=== PATIENT | male | born 1990 | race Caucasian/White ===

== ENCOUNTER 2022-11-29 08:42 | Day surgery (SDC) | payer MEDICAID, SELFPAY ==
[2022-11-29] VITALS (12 sets, daily range): BP systolic 102–180; BP diastolic 52–101; PULSE 61–95; RESP 14–31; TEMP 36.4–36.6; O2SAT 91–100
--- NOTE | ~2022-11-29 | CT_ITS ---
EXAMINATION: CT abdomen pelvis w con DATE: 11/29/2022 10:21 INDICATION: Abdomen pain. TECHNIQUE: Computed tomography (CT) of the abdomen and pelvis was performed with 100 cc Omnipaque 350 intravenous contrast. The dose-length product was 887.17 mGy-cm. Automated exposure control and iter ative reconstruction technique were employed. COMPARISON: None. FINDINGS: Lung bases are unremarkable. Heart size normal. No significant pleural or pericardial effus ion. There is a 2.2 cm right renal cyst. There are gallstones with possible mild gallbladder wall thi ckening. There is subtle pericholecystic fat stranding. Findings suspicious for cholecystitis. Fatty infiltration of the liver. The spleen, pancreas, adrenal glands are unremarkable. There is a small bernal bcentimeter hypodense mass in the left kidney, most likely benign cysts, although too small to charac terize. No significant atherosclerosis. No lymphadenopathy. No acute osseous abnormality. No focal ly tic or blastic lesions. No free air or free fluid. Nonobstructive bowel gas pattern. No abnormal pelv ic masses or fluid collections. Bladder is decompressed. IMPRESSION: 1. Mildly distended gallbladder with gallstones, possible mild gallbladder wall thickening and subtle pericholecystic fatty infiltration, suspicious for cholecystitis. Reviewed, dictated and finalized at location B. IMPRESSION: 1. Mildly distended gallbladder with gallstones, possible mild gallbladder wall thickening and subtle pericholecystic fatty infiltration, suspicious for lopez cystitis.
--- NOTE | 2022-11-29 09:22 | ED.ABDPAIN ---
HPI - Abdominal Pain General Chief Complaint: Abdominal Pain Stated Complaint: RUQ Time Seen by Provider: 11/29/22 08:53 Source: patient, family and RN notes reviewed History of Present Illness HPI narrative: Patient presents emergency department from home for abdominal pain. Patient states pain began approximately 3 AM this morning. The pain is located across the upper mid abdomen is described as sharp and stabbing in nature. States has been associate with nausea and vomiting. Denies have any fevers or chills denies having chest pain or shortness of breath. Patient states he does have a history of pancreatitis before in the past and this feels similar to prior. He denies having any diarrhea states he has not taken anything for pain Related Data Allergies Allergy/AdvReac Type Severity Reaction Status Date / Time No Known Allergies Allergy Verified 11/29/22 09:38 Review of Systems Review of Systems: Gen.: Denies fevers or chills ENT: Denies congestion Respiratory: Denies shortness of breath or cough CV: Denies chest pain or palpitations GI: See HPI denies burning, urgency, frequency or hematuria Musculoskeletal: Denies back pain or muscle pain Neuro: Denies numbness, tingling, weakness or focal weakness Skin: Denies rash Except as documented, all other systems reviewed and negative [facility] Past Medical History Medical History (Updated 11/29/22 @ 11:29 by Abraham Villareal DO) Pancreatitis Social History Social History (Updated 11/29/22 @ 09:23 by Abraham Villareal DO) Smoking status: Never smoker Exam Narrative: APPEARANCE: No acute distress, nontoxic, resting in bed HEENT: Normocephalic, atraumatic, OMM RESPIRATORY: No respiratory distress, clear to auscultation bilaterally with no rhonchi wheezing or rales CARDIOVASCULAR: RRR s murmur ABDOMINAL: Soft nondistended tender palpation epigastric, right upper quadrant and left upper quadrant no tenderness in the right lower quadrant left lower quadrant no rebound or guarding MUSCULOSKELETAl: Moves all extremities. No clubbing, cyanosis or edema. NEURO: Awake and alert. Following commands, speech normal, no focal deficits SKIN:: Warm, dry. Normal Color PSYCHIATRIC: Normal affect/mood Course Course Emergency Course: Called discussed with Dr. Arzola for general surgery presentation work-up at this time agrees with plan for admission to his service with plan for OR today Discussed with patient plan for OR in agreement at this time Vital Signs Vital signs: Vital Signs Temperature 97.8 F 11/29/22 09:40 Pulse Rate 76 11/29/22 09:40 Respiratory Rate 20 11/29/22 09:40 Blood Pressure 147/94 H 11/29/22 09:40 Pulse Oximetry 100 11/29/22 09:40 Oxygen Delivery Room Air 11/29/22 09:40 Temperature 97.8 F 11/29/22 09:40 Pulse Rate 68 11/29/22 11:17 Respiratory Rate 17 11/29/22 11:17 Blood Pressure 117/75 11/29/22 11:17 Pulse Oximetry 98 11/29/22 11:17 Oxygen Delivery Room Air 11/29/22 09:40 MDM - Abdominal Pain MDM Narrative Medical decision making narrative: Patient presents for abdominal pain that began in the middle night with associated nausea vomiting diarrhea tender in the epigastric region. Patient with work-up showing minimally elevated white count liver enzymes within normal limits CT scan shows signs of cholecystitis: Discussed with general surgery plan for antibiotics with plan for antibiotics today for further treatment and eval Differential Diagnosis Differential diagnosis: Likely abdominal pain, acute appendicitis, calculus of kidney, diverticulitis, gastroenteritis, pancreatitis and other (Cholecystitis) Lab Data Attestation: I reviewed the patient's lab results. 11/29/22 09:31 11/29/22 09:31 Labs: Lab Results 11/29/22 11/29/22 11/29/22 Range/Units 09:31 09:31 09:31 WBC 11.2 H (4.5-10.0) K/mm3 RBC 5.84 (4.6-6.20) M/mm3 Hgb 18.2 H (14.0-18.0) g/dL Hct
[2022-11-29 09:38] LABS: Basophils Absolute Auto 0.1 K/mm3 (0.0-0.1); Eosinophils Absolute Auto 0.2 K/mm3 (0-0.3); Eosinophils Percent Auto 1.7 % (0-4.4); Hematocrit 54.2 % (42.0-52.0); Hemoglobin 18.2 g/dL (14.0-18.0); Immature Granulocyte Absolute 0.04 K/mm3 (0.00-0.031); Immature Granulocyte Percent A 0.4 % (0-0.5); Lymphocytes Percent Auto 19.7 % (18.3-44.2); Mean Corpuscular HGB Conc 33.6 g/dl (32-36); Mean Corpuscular Hemoglobin 31.2 pg (26-34); Mean Corpuscular Volume 92.8 fl (80-100); Mean Platelet Volume 9.4 fl (7.4-10.4); Monocytes Absolute Auto 0.7 K/mm3 (0.1-0.6); Monocytes Percent Auto 5.9 % (2.6-8.5); Neutrophils Percent Auto 71.3 % (45.5-73.1); Platelet Count Result 407 k/mm3 (150-375); Red Blood Count 5.84 M/mm3 (4.6-6.20); Red Cell Distribution Width 12.5 % (11.5-14.5); White Blood Count 11.2 K/mm3 (4.5-10.0)
[2022-11-29] MEDS: MORPHINE SULFATE (*CRX) 4 MG/ML INJ IV PUSH (09:39)
[2022-11-29] MEDS: SODIUM CHLORIDE 0.9% IV 1,000 ML 999 ML IV CONT (09:39)
[2022-11-29] MEDS: ONDANSETRON INJ 4 MG/2 ML VIAL IV PUSH (09:39)
[2022-11-29 09:45] LABS: Appearance Urine Clear (Clear); Bacteria Urine None Seen /hpf; Bilirubin Urine Negative (Negative); Blood Urine Negative (Negative); Color Urine Dark Yellow (Yellow); Glucose Urine UA Negative (Negative); Ketones Urine Negative (Negative); Leukocyte Esterase Ur Negative LEU/UL (Negative); Nitrate Urine Negative (Negative); Protein Urine Trace mg/dL (Negative); RBC Urine 0-2 /hpf (0-2); Specific Grav Ur 1.032 (1.001-1.035); Squamous Epithelial Cell Urine None seen /hpf (Few); WBC Urine 0-5 /hpf; pH Urine 5.5 (5.0-9.0)
[2022-11-29 09:49] LABS: Alanine Aminotransferase 44 U/L (6-50); Alkaline Phosphatase 84 U/L (38-126); Anion Gap 13 mmol/L (8-16); Aspartate Amino Transferase 39 U/L (17-59); Bilirubin,Total 0.7 mg/dL (0.2-1.3); Blood Urea Nitrogen 13 mg/dL (9-20); Calcium 9.1 mg/dL (8.4-10.2); Carbon Dioxide 23 mmol/L (22-30); Chloride 102 mmol/L (98-107); Estimated CRCL calculation 105 ml/min; Estimated Glomerular Filt Rate > 60; Glucose 139 mg/dL (65-110); Lipase 114 U/L (23-300); Sodium 138 mmol/L (137-145)
[2022-11-29 10:09] LABS: Add Urine Microscopic? YES
[2022-11-29] MEDS: PIPERACILLN/TAZ 3.375GM/NS50ML 3.375 GM/50 ML BAG IVPB (11:50)
--- NOTE | 2022-11-29 12:55 | PM.IMHP ---
H&P: HPI History of Present Illness Date/Time: 11/29/22 12:55 Chief Complaint: acute cholecystitis Narrative: The patient is a 32-year-old male presenting to the emergency department complaining of severe upper abdominal pain, right greater than left. The patient reports the pain started acutely overnight and has progressively worsened. The patient reports associated bloating, nausea and vomiting. The patient reports a similar episode in the past where he was diagnosed with pancreatitis. The patient reports has had no appetite since the episode started, however denies any fever, chills. Review of Systems Constitutional: Constitutional: Reports as per HPI, Reports anorexia, Denies chills, Denies fatigue, Denies fever(s), Denies increased appetite, Denies lethargy, Denies malaise, Reports poor appetite, Denies weakness, Denies weight gain and Denies weight loss Eyes: Eyes: Reports no additional eye complaints ENT: Reports system reviewed and no additional complaints, except as documented Cardiovascular: Cardiovascular: Reports no additional cardiovascular complaints Respiratory: Respiratory: Reports no additional respiratory complaints Gastrointestinal: Gastrointestinal: Reports as per HPI, Reports abdominal pain, Reports bloating, Reports GI cramping, Reports early satiety, Reports heartburn, Denies diarrhea, Reports nausea, Reports vomiting and Denies hematemesis Genitourinary: Genitourinary: Reports no additional male genitourinary complaints Musculoskeletal: Musculoskeletal: Reports no additional musculoskeletal complaints Integumentary/Breasts: Skin/Breast: Reports system reviewed and no additional complaints, except as docu Neurologic: Reports system reviewed and no additional complaints, except as documented Psychiatric: Psychiatric: Reports no additional psychiatric complaints Hematologic/Lymphatic: Hematologic/Lymphatic: Reports no additional hematologic/lymphatic complaints Allergic/Immunologic: Allergic/Immunologic: Reports no additional allergic/immunologic complaints [facility] Past Medical History Medical History Pancreatitis Social History Social History Smoking status: Never smoker Comments Surgical history - denies previous abd surgery FH - Mom c gb dz and cholecystectomy Meds Home Medications and Allergies Allergies Allergy/AdvReac Type Severity Reaction Status Date / Time No Known Allergies Allergy Verified 11/29/22 09:38 Vital Signs Vital Signs - 24 hr 11/29/22 09:40 11/29/22 10:13 11/29/22 11:17 Temperature 36.6 C Pulse Rate 76 66 68 Respiratory Rate 20 15 17 Blood Pressure 147/94 H 145/84 H 117/75 Pulse Oximetry 100 100 98 Oxygen Delivery Room Air Exam Const: General: cooperative, alert, awake, acute distress mild, uncomfortable and overweight Orientation/consciousness: patient oriented x3 HENMT: Head: normal to inspection, normocephalic and atraumatic Eyes: General: appearance normal, both eyes and all related structures Neck: Neck: normal visual inspection, full ROM and no lymphadenopathy Chest: Chest palpation & inspection: normal inspection of the chest Resp: Effort & Inspection: normal respiratory effort Auscultation: clear to auscultation bilaterally Cardio: Rate: regular rate Rhythm: regular rhythm GI: Inspection: normal to inspection and distended GI Palp: Yes abdominal tenderness, Yes Soft to palpation, Yes Tenderness to palpation present (GI), No Guarding due to palpation present (GI) and No Rigid due to palpation Skin: General skin exam: normal color and no rashes or lesions noted Neuro: General: patient oriented x3 and CN's II-XI intact bilaterally Extrem: General: normal to inspection and full ROM Psych: Appearance: grossly normal H&P: Results Labs Labs: Short CBC 11/29/22 Range/Units 09:31 WBC 11.2 H (4.5-10.0)
[2022-11-29] MEDS: LACTATED RINGERS 1,000 ML 30 ML IV CONT ×2 (13:00→15:31)
--- NOTE | 2022-11-29 13:00 | WPDHPUPDATE1 ---
History and Physical Update Update Date/Time: 11/29/22 13:00 History and Physical has been reviewed, including an updated exam of the patient. There are NO changes in the patient's condition. Risks, benefits, and alternatives have been discussed and questions answered. Patient agrees to proceed with procedure.
--- NOTE | 2022-11-29 13:41 | WPDANESEPPF ---
Anes - Initial Pre Proc Eval Procedure: Operation Date: 11/29/22 14:30 Proposed Procedures p Laparoscopic Cholecystectomy - Rosetta Arzola MD Date/Time: 11/29/22 13:41 Surgeon: Rosetta Arzola MD Pre Op Diagnosis: RUQ Patient Data Age: 32 Gender: M Height: 1.85 m Weight: 97.5 kg Last Vital Signs Temp 36.4 C 11/29/22 13:18 Pulse 61 11/29/22 13:18 Resp 14 11/29/22 13:18 BP 118/77 11/29/22 13:18 Pulse Ox 98 11/29/22 13:18 O2 Del Method Room Air 11/29/22 13:18 Allergies Allergy/AdvReac Type Severity Reaction Status Date / Time No Known Allergies Allergy Verified 11/29/22 09:38 Laboratory Tests 11/29/22 11/29/22 11/29/22 09:31 09:31 09:31 WBC 11.2 K/mm3 H K/mm3 (4.5-10.0) RBC 5.84 M/mm3 M/mm3 (4.6-6.20) Hgb 18.2 g/dL H g/dL (14.0-18.0) Hct 54.2 % H % (42.0-52.0) MCV 92.8 fl fl (80-100) MCH 31.2 pg pg (26-34) MCHC 33.6 g/dl g/dl (32-36) RDW 12.5 % % (11.5-14.5) Plt Count 407 k/mm3 H k/mm3 (150-375) MPV 9.4 fl fl (7.4-10.4) Immature Gran % (Auto) 0.4 % % (0-0.5) Neut % (Auto) 71.3 % % (45.5-73.1) Lymph % (Auto) 19.7 % % (18.3-44.2) [place] % (Auto) 5.9 % % (2.6-8.5) Eos % (Auto) 1.7 % % (0-4.4) Baso % (Auto) 1.0 % % (0.2-1.2) Lymph # (Auto) 2.20 K/mm3 K/mm3 (0.9-3.2) [place] # (Auto) 0.7 K/mm3 H K/mm3 (0.1-0.6) Eos # (Auto) 0.2 K/mm3 K/mm3 (0-0.3) Baso # (Auto) 0.1 K/mm3 K/mm3 (0.0-0.1) Abs Immat Gran (auto) 0.04 K/mm3 H K/mm3 (0.00-0.031) Absolute Neuts (auto) 8.0 K/mm3 H K/mm3 (1.3-6.7) Absolute Nucleated RBC 0.0 K/mm3 K/mm3 (0.0-0.012) Nucleated RBC % 0.0 % % (0.0-0.2) Sodium 138 mmol/L mmol/L (137-145) Potassium 4.0 mmol/L mmol/L (3.4-5.0) Chloride 102 mmol/L mmol/L (98-107) Carbon Dioxide 23 mmol/L mmol/L (22-30) Anion Gap 13 mmol/L mmol/L (8-16) BUN 13 mg/dL mg/dL (9-20) Creatinine 1.00 mg/dL mg/dL (0.7-1.3) Estim Creat Clear Calc 105 ml/min ml/min Estimated GFR > 60 (59 - ) Glucose 139 mg/dL H mg/dL (65-110) Calcium 9.1 mg/dL mg/dL (8.4-10.2) Total Bilirubin 0.7 mg/dL mg/dL (0.2-1.3) AST 39 U/L U/L (17-59) ALT 44 U/L U/L (6-50) Alkaline Phosphatase 84 U/L U/L (38-126) Total Protein 8.0 g/dL g/dL (6.3-8.2) Albumin 5.0 g/dL g/dL (3.5-5.1) Lipase 114 U/L U/L (23-300) Urine Color Dark yellow (Yellow) Urine Appearance Clear (Clear) Urine pH 5.5 (5.0-9.0) Ur Specific [place] 1.032 (1.001-1.035) Urine Protein Trace mg/dL mg/dL (Negative) Urine Glucose (UA) Negative mg/dL mg/dL (Negative) Urine Ketones Negative mg/dL mg/dL (Negative) Ur Blood (Man) Negative (Negative) Urine Nitrate Negative (Negative) Urine Bilirubin Negative (Negative) Urine Urobilinogen 1.0 mg/dL mg/dL (<2.0) Leukocyte Esterase Rfl Negative MARCO ANTONIO/UL MARCO ANTONIO/UL (Negative) Urine RBC 0-2 /hpf /hpf (0-2) Urine WBC 0-5 /hpf /hpf Ur Squamous Epith Cells None seen /hpf /hpf (Few) Urine Bacteria None seen /hpf /hpf Urine Casts 3-5 Patient hx anesthesia problems: none Family hx anesthesia problems: none Results Review: All pre-operative results and documents have been reviewed as part of the pre-operative evaluation. [facility] Past Medical History Medical History Pancreatitis Social History Social History (Updated 11/29/22 @ 13:55 by Alverto Nieto DO) Smoking packs
[2022-11-29] MEDS: BUPIVACAINE/EPINEPHRINE 0.5% 50 ML VIAL 30 ML INFILTRATE (14:27)
[2022-11-29] MEDS: fentaNYL CITRATE INJ (*CRX) 100 MCG/2 ML VIAL 25 MCG IV PUSH ×4 (15:04→15:11)
--- NOTE | 2022-11-29 15:06 | W.PM.PROC2 ---
Procedure Note - Detailed Date of Procedure 11/29/22 Pre-op Diagnosis Acute cholecystitis, cholelithiasis Post-op Diagnosis Same Procedure Performed Laparoscopic cholecystectomy Surgeon Rosetta Arzola MD Anesthesia General Indications 32-year-old male presented to the emergency department complaining of severe right upper quadrant abdominal pain associated with nausea and vomiting. Workup including imaging significant for acute cholecystitis, cholelithiasis. Findings acute cholecystitis with cholelithiasis Description of Procedure The patient was taken to the operating room placed in the supine position. After adequate induction of general anesthesia, the patient was prepped and draped in normal sterile fashion. A time-out was then performed to verify the patient's identity as well as the procedure being performed. I then made a 5 mm incision in the infraumbilical region. Through this, a Veress needle was placed into the peritoneal cavity and CO2 gas was then insufflated. After adequate pneumoperitoneum was achieved, the Veress needle was removed and a 5 mm optiview trocar was placed through this incision under direct visualization. I then placed the laparoscope through this trocar site and under direct visualization placed a further 12 mm subxiphoid port as well as 2 additional 5 mm ports in the right upper abdomen. The gallbladder was then identified and was noted to be inflamed, distended, and full of gallstones. I was able to place a grasper at the dome of the gallbladder and this was retracted anterior and cephalad up over the liver. A 2nd retractor was then placed at the infundibulum and retracted laterally, this allowed visualization of the triangle of Calot. I then was able to visualize the cystic duct in its entirety from its proximal insertion into the gallbladder, to its distal junction with the common hepatic/common bile duct junction. At this point, I carefully skeletonized the proximal cystic duct with the [place] dissector. I then clipped and transected the proximal cystic duct. Next I visualized the cystic artery. Again the artery was skeletonized, clipped, and transected. I then used the Bovie cautery to take down the peritoneal attachments of the gallbladder off the liver bed. This was somewhat difficult given the amount of inflammation in the posterior space. Once the gallbladder specimen was completely detached, an endo-pouch was placed through the 12 mm port site. I then placed the gallbladder specimen into the Endo pouch and removed the endo-pouch from the 12 mm port site. Of note, I did have to slightly enlarge the incision to allow extraction of the gallbladder specimen. The specimen will now be sent to pathology for further review. I then copiously irrigated the right upper quadrant. Hemostasis was noted in the liver bed, the clips were noted to be in good position on both the cystic duct stump and the cystic artery stump. No other pathology was noted in the right upper quadrant. I then moved the laparoscope to the subxiphoid port. No iatrogenic injury or other pathology was noted in the lower abdomen. I then closed the 12 mm trocar site under direct visualization using the Wyatt cone and 0 Vicryl suture. At this point, the abdomen was desufflated and all ports removed. All port sites were then closed with 4.O Monocryl subcuticular sutures. Dermabond was placed on each incision. The patient tolerated the procedure well, was extubated in the operating room postoperative and will be transferred to the recovery room in stable condition Estimated Blood Loss 10 Drains No Packing No Pathology Yes Complications No immediate complications Condition Stable Disposition PACU [facility] Billing Surgery - Charge Forward: Surgery Billing
[2022-11-29] MEDS: MIDAZOLAM HCL (*CRX) 2 MG/2 ML VIAL IV PUSH (15:18)
[2022-11-29] MEDS: HYDROmorphone HCL INJ (*CRX) 1 MG/ML SYR 0.5 MG IV PUSH ×4 (15:29→16:00)
[2022-11-29] MEDS: oxyCODONE HCL (*CRX) 5 MG TAB IR PO (16:34)
== END 2022-11-29 17:05 | disposition home or self-care (01) ==
LOC: ANHED 11:29 → ANHSURGERY 12:09
PROVIDERS: Emergency Provider Emergency Medicine; PCP Family Medicine; Visit Provider Surgery
PROC: 0FT44ZZ Resection of Gallbladder, Percutaneous Endoscopic Approach (ICD-10-PCS; CPT 47562; principal; 2022-11-29 14:30)
DX: K80.12 Calculus of gallbladder with acute and chronic cholecystitis without obstruction (principal); F17.210 Nicotine dependence, cigarettes, uncomplicated
CPT/HCPCS: 47562; 36415; 74177; 80053; 81001; 83690; 85025; 88304; A9270; J0330; J1100; J1170; J2250; J2270; J2405; J2543; J2704; J3010; J7030; J7120; Q9967

== ENCOUNTER 2023-12-14 07:24 | Inpatient (IN) | payer OTHER, MEDICAID, SELFPAY ==
[2023-12-14] VITALS (19 sets, daily range): BP systolic 111–129; BP diastolic 67–91; PULSE 65–115; RESP 20–38; TEMP 36.6–37.8; O2SAT 91–96; BMI 30.7
--- NOTE | 2023-12-14 | ECHO_ITS ---
Patient Info Name: Niko Abraham Age: 33 years : 1990 Gender: Male Ht: 72 in Wt: 230 lbs BSA: 2.33 m2 HR: 101 bpm BP: 126 / 77 mmHg Heart Rhythm: Sinus Rhythm Technical Quality: Fair Exam Date: 12/14/2023 3:55 PM Exam Location: Echo Lab Patient Status: Outpatient Admit Date: 12/14/2023 Staff Ordering Physician: Peggy Galvan APRN [employer] Developer: Richie Valdez RDCS Attending Provider: Alcides Kulkarni MD Referring Physician: Mandy MISHRA; Exam Type: CA echo doppler color flow Study Info Indications - pleural effusion Complete two-dimensional, color flow and Doppler transthoracic echocardiogram is performed. Summary 1. Complete two-dimensional, color flow and Doppler transthoracic echocardiogram is performed. 2. Technically difficult study with limited views. 3. Left ventricular chamber dimension is normal. 4. Left ventricular systolic function is normal, estimated at 65-70%. 5. There is mildly increased left ventricular wall thickness. 6. The left ventricular diastolic function is grade I diastolic dysfunction. 7. There is no aortic valve stenosis. 8. There is no mitral valve regurgitation. 9. There is trace tricuspid valve regurgitation. 10. No pulmonary hypertension, estimated pulmonary arterial systolic pressure is 18 mmHg. Left Ventricle Left ventricular chamber dimension is normal. Left ventricular systolic function is normal, estimated at 65-70%. There is mildly increased left ventricular wall thickness. The left ventricular diastolic function is grade I diastolic dysfunction. Technically difficult study with limited views. Right Ventricle Right ventricular chamber dimension is normal. Right ventricular systolic function is normal. Left Atria Left atrial chamber dimension is normal. Right Atria Right atrial chamber dimension is normal. Aortic Valve The aortic valve is not well visualized. There is no aortic valve stenosis. There is no aortic valve regurgitation. Pulmonic Valve The pulmonic valve is not well visualized. Mitral Valve The mitral valve has normal leaflets. There is no mitral valve regurgitation. Tricuspid Valve The tricuspid valve leaflets are normal. There is trace tricuspid valve regurgitation. No pulmonary hypertension, estimated pulmonary arterial systolic pressure is 18 mmHg. Pericardium/Pleural The pericardium appears epicardial fat pad. There is no pericardial effusion. Aorta The aortic root size at the sinus of Valsalva is normal. The prox ascending aorta size is normal. Left Ventricular Outflow Tract Name Value Normal LVOT 2D LVOT Diameter 2.2 cm LVOT Doppler LVOT Peak Gradient 7 mmHg LVOT Mean Gradient 4 mmHg LVOT VTI 27 cm LVOT VTI/AV VTI Ratio 1.3 LVOT Stroke Volume 100 ml LVOT CO 9.0 l/min LVOT CI 3.9 l/min/m2 Pulmonic Valve Name Value Normal
--- NOTE | ~2023-12-14 | CT_ITS ---
EXAMINATION: CT abdomen pelvis wo con DATE: 12/14/2023 12:35 INDICATION: Concern for metastatic disease based on prior chest CT TECHNIQUE: Computed tomography (CT) of the abdomen and pelvis was performed without intravenous contr ast. Automated exposure control and iterative reconstruction technique were employed. The dose-length product was 1092.03 mGy-cm. COMPARISON: 11/29/2022 FINDINGS: Small likely complex loculated left pleural effusion. There is associated atelectasis with partial co llapse of the left lower lobe. Partially visualized right lower lobe nodule which measures up to 1.5 cm which demonstrates fluid attenuation on the current study and less than fluid attenuation on the p rior chest CT which would be consistent with a hamartoma. Additional indeterminate nodules measuring 8 mm at the posterior sulcus of the right lower lobe on series 4, image 31 and 4 mm in the right lowe r lobe on image 9. There is additional compressive atelectasis along the anterior right lower lobe an d inferior right middle lobe. Heart size is normal. No pericardial effusion however there is some str anding in the left paracardial fat pad. There is mild diffuse hepatic steatosis. Cholecystectomy clip s at the gallbladder fossa. Spleen, pancreas and bilateral adrenal glands are normal. 2.0 cm exophyti c cyst at the lower pole of the right kidney. There are some excreted contrast the bilateral renal co llecting systems and in the bladder from the earlier contrast-enhanced chest CT . No hydronephrosis. Bowels are normal with no obstruction. The appendix is not visualized. No pericecal inflammatory muro ge to suggest acute appendicitis. No free intraperitoneal gas or fluid. No pathologically enlarged ab dominal or pelvic lymphadenopathy. Mild thoracic and lumbar spondylosis. Chronic mild likely physiolo gic anterior wedging at T11 and T12. IMPRESSION: 1. No evident metastatic disease in the abdomen or pelvis. 2. The 1.5 cm right lower lobe nodule concern demonstrates fluid attenuation in the current study and less than fluid attenuation on the prior chest CT despite the presence of intravenous contrast which would be most consistent with a benign hamartoma. Would however recommend further evaluation with ei ther 3 month follow-up chest CT or PET/CT of the 8 mm nodule at the posterior sulcus of the right low er lobe. Given the relatively small size of a nodule particular relative to the significant amount of respiratory motion at this level, percutaneous biopsy would be very challenging. 3. Likely exudative small loculated left pleural effusion with associated compressive atelectasis in the left lower lobe. Would consider ultrasound-guided thoracentesis. 4. Upon review of prior chest CT there is a partially visualized 3.0 x 2.2 cm mass situated in the le ft paravertebral musculature at the posterior lower cervical spine. 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 Would recommend neck CT without and with contrast to completely image the lesion. Reviewed, dictated and finalized at location A. IMPRESSION: 1. No evident metastatic disease in the abdomen or pelvis. 2. The 1.5 cm right lower lobe nodule concern demonstrates fluid attenuation in the current study and less than fluid attenuation on the prior chest CT despit e the presence of intravenous contrast which would be most consistent with a be nign hamartoma. Would however recommend further evaluation with either 3 month follow-up chest CT or PET/CT of the 8 mm nodule at the posterior sulcus of the right lower lobe. Given the relatively small size of a nodule particular relati ve to the significant amount of respiratory motion at this level, ligia
--- NOTE | ~2023-12-14 | XR_ITS ---
EXAMINATION: [id number] DATE: 12/14/2023 14:25 INDICATION: Status post left thoracentesis TECHNIQUE: frontal and lateral views of the chest were obtained. COMPARISON: Chest radiograph dated 12/14/2023 FINDINGS: Mild interval decrease in opacities in the left mid and lower lung zone post thoracentesis likely rep resenting residual small loculated components to the pleural effusion seen on prior CT with associate d atelectasis and/or pneumonia. No pneumothorax. There is improved aeration in the right middle lobe. There are some persistent mild right basilar atelectasis. No right-sided pleural effusion. The cardi omediastinal silhouette is within normal limits for AP technique. Cholecystectomy clips in right uppe r quadrant. IMPRESSION: 1. Slight decrease in a small left pleural effusion with associated atelectasis and/or pneumonia in t he left lower lung post thoracentesis. No pneumothorax. 2. Mild persistent atelectasis at the right lung base with improved aeration of the right middle lobe . Reviewed, dictated and finalized at location A. IMPRESSION: 1. Slight decrease in a small left pleural effusion with associated atelectasis and/or pneumonia in the left lower lung post thoracentesis. No pneumothorax. 2. Mild persistent atelectasis at the right lung base with improved aeration of the right middle lobe.
--- NOTE | ~2023-12-14 | XR_ITS ---
Portable chest x-ray Comparison: 12/14/2023 Clinical History: Left effusion Findings: Moderate to large left pleural effusion is again present. Probable minimal right pleural e ffusion. Cardiomediastinal silhouette is stable. Bones and soft tissues are unremarkable. Impression: Moderate to large left pleural effusion and minimal right pleural effusion. Probable associated bibasilar atelectatic change. Reviewed, dictated and finalized at location . Impression: Moderate to large left pleural effusion and minimal right pleural effusion. Probable associated bibasilar atelectatic change.
--- NOTE | ~2023-12-14 | XR_ITS ---
Clinical Indication: Chest pain PA and lateral views of the chest: Comparison: 04/19/2018 Findings: Moderate left pleural effusion present with probable left basilar atelectasis. There is haz iness of the medial right lung base with minimal right pleural effusion. Cardiomediastinal silhouett e is within normal limits. Bones and soft tissues are unremarkable. Impression: Moderate left pleural effusion and minimal right pleural fusion, with probable left basilar atelectas is. Hazy opacity medial right lung base, which could reflect central congestive change, pneumonia, pulmon fabio nodule, possibly atelectasis. Consider chest CT to further evaluate, as indicated. Reviewed, dictated and finalized at location . Impression: Moderate left pleural effusion and minimal right pleural fusion, with probable left basilar atelectasis. Hazy opacity medial right lung base, which could reflect central congestive sanjuanita nge, pneumonia, pulmonary nodule, possibly atelectasis. Consider chest CT to fu rther evaluate, as indicated.
--- NOTE | ~2023-12-14 | US_ITS ---
EXAMINATION: US thoracentesis DATE: 12/14/2023 14:41 INDICATION: Left pleural effusion. TECHNIQUE: The procedure and its risks and benefits were discussed with the patient. Potential risks discussed included bleeding, infection, and pneumothorax. The patient understood the risks and agreed to proceed. The skin was prepped and draped in sterile fashion. 1% lidocaine was used for local anes thesia. Under ultrasound guidance, a 5 Fr catheter with trochar was advanced into the small left pleu ral effusion. Fluid was aspirated. The catheter was removed, and a dressing was applied. There were n o immediate complications. FINDINGS: Ultrasound images demonstrate a small left pleural effusion and the catheter within the fluid. IMPRESSION: 1. Successful ultrasound-guided thoracentesis yielding 500 mL of cloudy etelvina-colored fluid. Reviewed, dictated and finalized at location A. IMPRESSION: 1. Successful ultrasound-guided thoracentesis yielding 500 mL of cloudy etelvina- colored fluid.
--- NOTE | ~2023-12-14 | CT_ITS ---
Clinical Indication: Dyspnea, chest pain CT Scan of the Chest with Contrast: Technique: Contiguous sections were acquired throughout the chest after intravenous administration of 100 cc of Omnipaque 350. Dose reduction technique was used on this scan by utilizing automated expos ure control and iterative reconstruction technique. The dose-length product (DLP) was 825.96 mGy-cm. Findings: There is no evidence of any significant mediastinal, hilar or axillary lymphadenopathy. There is no f illing defect in the pulmonary arterial tree to suggest pulmonary embolus. There is no evidence of ao rtic dissection or aneurysm. No pericardial effusion. There is small to moderate left pleural effusion, likely partially loculated. There is extensive left lower lobe atelectatic change. There is consolidation at the right middle lobe, inferior right upper lobe, and right lung base, most likely representing atelectatic changes. There is a 1.4 cm right low er lobe pulmonary nodule (axial image 55). There is an additional 7 mm right basilar pulmonary nodule (axial image 83). There is a 3 mm right lower lobe pulmonary nodule (axial image 63). Images through the upper abdomen reveal cholecystectomy clips. Impression: No evidence of pulmonary embolus, aortic dissection, or aortic aneurysm. 1.4 cm right lower lobe pulmonary nodule with 2 additional subcentimeter right lower lobe pulmonary n odules, as detailed above. Neoplastic/metastatic disease not excluded. Consider PET/CT and/or tissue sampling to establish a histologic diagnosis. Small to moderate left pleural effusion, likely partially loculated, with extensive left lower lobe a telectatic change. Dependent atelectatic change at the right lung base, as detailed above. Reviewed, dictated and finalized at [facility]. Impression: No evidence of pulmonary embolus, aortic dissection, or aortic aneurysm. 1.4 cm right lower lobe pulmonary nodule with 2 additional subcentimeter right lower lobe pulmonary nodules, as detailed above. Neoplastic/metastatic disease not excluded. Consider PET/CT and/or tissue sampling to establish a histologic diagnosis. Small to moderate left pleural effusion, likely partially loculated, with exten sive left lower lobe atelectatic change. Dependent atelectatic change at the ri ght lung base, as detailed above.
--- NOTE | 2023-12-14 07:34 | ECG_ITS ---
SEE SCANNED COPY FOR CONFIRMED REPORT MTDD
[2023-12-14 08:07] LABS: Basophils Absolute Auto 0.1 K/mm3 (0.0-0.1); Basophils Percent Auto 0.5 % (0.2-1.2); Eosinophils Absolute Auto 0.2 K/mm3 (0-0.3); Hematocrit 49.3 % (42.0-52.0); Hemoglobin 16.7 g/dL (14.0-18.0); Immature Granulocyte Absolute 0.12 K/mm3 (0.00-0.031); Immature Granulocyte Percent A 0.8 % (0-0.5); Lymphocytes Absolute Auto 2.28 K/mm3 (0.9-3.2); Lymphocytes Percent Auto 15.4 % (18.3-44.2); Mean Corpuscular HGB Conc 33.9 g/dl (32-36); Mean Corpuscular Hemoglobin 30.7 pg (26-34); Mean Corpuscular Volume 90.6 fl (80-100); Mean Platelet Volume 9.7 fl (7.4-10.4); Monocytes Percent Auto 13.6 % (2.6-8.5); Neutrophils Absolute Auto 10.2 K/mm3 (1.3-6.7); Neutrophils Percent Auto 68.7 % (45.5-73.1); Platelet Count Result 431 k/mm3 (150-375); Red Blood Count 5.44 M/mm3 (4.6-6.20); Red Cell Distribution Width 12.1 % (11.5-14.5); White Blood Count 14.8 K/mm3 (4.5-10.0)
[2023-12-14 08:34] LABS: Alanine Aminotransferase 35 U/L (6-50); Albumin Level 4.7 g/dL (3.5-5.1); Alkaline Phosphatase 66 U/L (38-126); Anion Gap 13 mmol/L (4-12); Aspartate Amino Transferase 33 U/L (17-59); Bilirubin,Total 1.6 mg/dL (0.2-1.3); Blood Urea Nitrogen 8 mg/dL (9-20); Calcium 9.7 mg/dL (8.4-10.2); Carbon Dioxide 21 mmol/L (22-30); Chloride 100 mmol/L (98-107); Estimated CRCL calculation 127 ml/min; Estimated Glomerular Filt Rate > 60; Glucose 112 mg/dL (65-110); Lipase 39 U/L (23-300); Potassium 3.7 mmol/L (3.4-5.0); Sodium 134 mmol/L (137-145)
[2023-12-14 08:41] LABS: Troponin I < 0.012 ng/mL (0.000-0.034)
[2023-12-14 09:16] LABS: INR 1.1; Prothrombin Time 14.2 Seconds (11.1-14.7)
[2023-12-14 09:18] LABS: Partial Thromboplastin Time 30.5 Seconds (22.3-36.8)
--- NOTE | 2023-12-14 09:42 | ED.CHESTPAIN ---
HPI - Chest Pain General Chief Complaint: Chest Pain <HEATHER Pierce Last Filed: 12/15/23 15:14> Stated Complaint: mult complaints <HEATHER Pierce Last Filed: 12/15/23 15:14> Time Seen by Provider: 12/14/23 09:07 <Nathan Garcia PA-C - Last Filed: 12/15/23 15:14> Source: patient <HEATHER Pierce Last Filed: 12/15/23 15:14> Mode of arrival: ambulatory <HEATHER Pierce Last Filed: 12/15/23 15:14> Limitations: no limitations <HEATHER Pierce Last Filed: 12/15/23 15:14> History of Present Illness HPI narrative: this is a 33 year old male who presents to the ED with chief complaint of chest pain beginning 2 days ago. Patient reports initially having some shortness of breath and feeling fatigued over the weekend but for the past couple of days has had pleuritic chest pain. He reports it is mainly on the left side. described as sharp and worsens with certain movements or with deeper breathing. Reports it feels like it is in the ribs and the back. States last time he had pain like this was when his gallbladder was inflamed. He reports sweats and chills at but no recorded fevers. Denies vomiting, syncope, numbness, focal weakness, abdominal pain, urinary symptoms. denies any IV or recreational drug use <HEATHER Pierce Last Filed: 12/15/23 15:14> Related Data Home Medications: Home Medications Medication Instructions Recorded Confirmed No Home Medications 12/14/23 12/14/23 <HEATHER Pierce Last Filed: 12/15/23 15:14> Allergies/Adverse Reactions: Allergies Allergy/AdvReac Type Severity Reaction Status Date / Time No Known Allergies Allergy Verified 12/14/23 09:42 <HEATHER Pierce Last Filed: 12/15/23 15:14> Review of Systems Review of Systems: All systems as dictated in HPI <HEATHER Pierce Last Filed: 12/15/23 15:14> [facility] Past Medical History Medical History: Medical History (Updated 12/14/23 @ 22:15 by Marixa Walker MD) Pancreatitis Suicide attempt 17 years old, no issues since <Nathan Garcia PA-C - Last Filed: 12/15/23 15:14> Surgical History Surgical History: Surgical History History of appendectomy History of laparoscopic cholecystectomy 11/29/2022 <Nathan Garcia PA-C - Last Filed: 12/15/23 15:14> Family History Family History: Family History (Updated 12/14/23 @ 16:51 by Marilu Hugo RN) Father Acute myocardial infarction Sibling Asthma <HEATHER Pierce Last Filed: 12/15/23 15:14> Social History Social History: Social History Smoking packs per day: 1 Smoking cigarettes per day: 20.0 Years smoked: 15 Smoking pack-years: 15.00 Smoking status: Current every day smoker Tobacco type: cigarettes Alcohol intake: never Substance use: never Do You Feel Safe in your Home?: Yes Lack of Transportation: No Lack of Food: Never True Current Housing: I Have Housing Concerned About Future Housing: No Difficulty Paying Gas/Electric Bills: No Difficulty Paying for Meds: No Currently Unemployed: YES Education: High School Diploma/GED Difficulty w/ Childcare or Family Care: No Spiritual care concerns: No <HEATHER Pierce Last Filed: 12/15/23 15:14> Exam Narrative: GENERAL: Appears in pain. Sitting up in the bed. HEAD: Normocephalic, atraumatic. EYES: PERRLA and EOMI. ENT: Nares clear, no rhinorrhea or epistaxis. Mucous membranes moist. Oropharynx without tonsillar hypertrophy exudate or other lesions. NECK: Supple. No adenopathy or masses. CHEST: Slightly tachypneic. No overt respiratory distress. No accessory muscle use. Able to speak in full sentences. 93% room air. Breath sounds absent on the left lower and left mid lung zones. Diminished on right lower lung zo
[2023-12-14] MEDS: HYDROmorphone HCL INJ (*CRX) 1 MG/ML SYR 0.5 MG IV PUSH ×3 (09:54→23:10)
[2023-12-14 10:25] LABS: NT Pro B Type Natriuretic Pept 82 pg/mL (19.9-100)
--- NOTE | 2023-12-14 11:30 | ECG_ITS ---
SEE SCANNED COPY FOR CONFIRMED REPORT MTDD
[2023-12-14] MEDS: PIPERACILLN/TAZ 3.375GM/NS50ML 3.375 GM/50 ML BAG IVPB (11:39)
[2023-12-14 11:49] LABS: Alveolar/Arterial O2 Gradient 55.6 mmHg; Base Excess ABG -2.3 mEq/l (+/-2.0); Fractional Inspired Oxygen 21 %; HCO3 ABG 19.6 mEq/l (22.0-26.0); Oxygen Content ABG 21.2 %vol (16.0-22.0); Oxygen Saturation ABG 93.2 % (95.0-100.0); PCO2 ABG 27.6 mmHg (35.0-45.0); PO2 ABG 61.1 mmHg (80.0-100.0); PO2 FiO2 Ratio Arterial Blood 2.91 %; Total Hemoglobin 16.6 g/dL (12.0-18.0)
[2023-12-14 11:50] LABS: Site Drawn RIGHT BRACHIAL
[2023-12-14 11:51] LABS: Device ROOM AIR
[2023-12-14 12:05] LABS: Lactic Acid Reflex 1.3 mmol/L (0.7-2.0)
[2023-12-14 12:16] LABS: Troponin I < 0.012 ng/mL (0.000-0.034)
[2023-12-14 12:36] LABS: Influenza A QL RT-PCR Negative (Negative); Influenza B QL RT-PCR Negative (Negative); RSV RNA, RT-PCR Negative (Negative); SARS-CoV-2 RNA PCR Negative (Negative)
[2023-12-14] MEDS: levoFLOXacin 750 MG/D5W 150 ML 750 MG/150 ML BAG 100 MG IVPB (12:36)
[2023-12-14 13:04] LABS: HIV 1/2 Ab P24 Ag Result Negative (Negative)
[2023-12-14] MEDS: LACTATED RINGERS 1,000 ML 999 ML IV CONT ×2 (13:15)
--- NOTE | 2023-12-14 13:22 | PM.IMHP ---
H&P: HPI History of Present Illness Date/Time: 12/14/23 13:22 Chief Complaint: Chest Pain Narrative: 33 y/o M presents here with chest pain and SOB with exertion with PMH of pancreatitis (one acute episode, teenager) and cholecystectomy (11/29/22). Patient presents here from home for further evaluation of shortness of breath with exertion and chest discomfort. Patient reports he initially developed symptoms on 12/08 (Tuesday). Symptom course started with shortness of breath that worsened with activity and alleviated with rest. Has since developed decreased appetite and L rib pain described as blunt, nonradiating, intermittent, aggravated by laying flat, and alleviated by rest. Had similar episode of pain when he had acute cholecystics in 2022 that resulted in a cholecystectomy. Initially attributed chest wall pain to laying on it wrong or muscular. Endorses chills and intermittent diaphoresis/clamminess starting on 12/10 (Tuesday) Denies fever, body aches, unintentional weight loss, abnormal or easy bruising, night sweats, syncope, palpitations, or abdominal pain. IVDU - none. ETOH - biannually (new years and birthday democrat). No international travel or previous incarceration. Denies any recent trauma. No chemical exposures. Smokin PPD x 20 years. Initial VS at presentation: PA 97.9? F, HR 115, RR 28, 129/91, and 91% on RA. ED workup showed: WBC 14.8, platelet count 431, anion gap 13, creatinine 0.9 and GFR >60, lactic 1.3, total bilirubin 1.6, and initial troponin negative. Lipase 39 and LFTs within normal limits. Patient had multiple abnormal findings on CTA. Review of Systems Review of Systems: All systems reviewed & are unremarkable except as noted in HPI and below PMFSH Past Medical History Medical History Pancreatitis Surgical History Surgical History History of appendectomy History of laparoscopic cholecystectomy 11/29/2022 Social History Social History Smoking packs per day: 1 Smoking cigarettes per day: 20.0 Years smoked: 15 Smoking pack-years: 15.00 Smoking status: Current every day smoker Meds Home Medications and Allergies Home Medications Medication Instructions Recorded Confirmed Type hydrocodone 5 mg-acetaminophen 325 1 tablet PO Q6H PRN pain #30 tabs 11/29/22 12/15/22 Rx mg tablet Allergies Allergy/AdvReac Type Severity Reaction Status Date / Time No Known Allergies Allergy Verified 12/14/23 09:42 Vital Signs Vital Signs - 24 hr 12/14/23 07:28 12/14/23 07:58 12/14/23 07:34 Temperature 97.9 F Pulse Rate 115 H 92 110 H Respiratory Rate 28 H 27 H Blood Pressure 129/91 H Pulse Oximetry 91 92 Oxygen Delivery Room Air 12/14/23 08:20 12/14/23 08:54 12/14/23 09:16 Temperature Pulse Rate 101 H 109 H 109 H Respiratory Rate 30 H 20 38 H Blood Pressure 111/76 125/81 Pulse Oximetry 93 95 93 Oxygen Delivery 12/14/23 09:45 12/14/23 10:14 12/14/23 11:38 Temperature Pulse Rate 104 H 115 H 85 Respiratory Rate 38 H 27 H 23 H Blood Pressure 126/76 121/69 Pulse Oximetry 93 93 Oxygen Delivery 12/14/23 11:46 Temperature Pulse Rate 93 Respiratory Rate 26 H Blood Pressure 112/74 Pulse Oximetry 93 Oxygen Delivery Exam Const: General: comfortable and no acute distress Other: , male, ill-appearing HENMT: Face/Nose/Sinus: Normal nares present Mouth: Yes moist mucous membranes Other: +poor dentition Eyes: General: appearance normal, both eyes and all related structures Sclera: sclerae normal Pupils: Equal, round and reactive pupils present EOM: EOMs intact bilaterally Neck: Other: no lymphadenopathy, thyroid normal Resp: Other: mild tachypnea, no accessory muscle use. L lung sounds absent from midlung to base. Diminished at R ba
[2023-12-14 13:45] LABS: Troponin I < 0.012 ng/mL (0.000-0.034)
[2023-12-14 13:51] LABS: Lactate Dehydrogenase 154 U/L (120-246)
--- NOTE | 2023-12-14 13:56 | PC.NURSE ---
Patient to US for procedure
--- NOTE | 2023-12-14 14:38 | PC.NURSE ---
After levaquin infusion, patient's wrist began getting red. patient complained of burning. infusion stopped and IV removed.
[2023-12-14 14:47] LABS: pH Pleural Fluid 7.224 (7.210-7.500)
[2023-12-14 14:55] LABS: MRSA (PCR) NOT DETECTED (NOT DETECTE)
[2023-12-14] MEDS: VANCOMYCIN 1,250 MG/NS 250 ML 1,250 MG/250 ML BAG 166.67 MG IVPB ×2 (15:15→16:53)
--- NOTE | 2023-12-14 16:07 | PC.NURSE ---
Attempted to call IMU X2 with no answer
[2023-12-14 16:12] LABS: Appearance Pleural Fluid Clear (Clear); Color Pleural Fluid Yellow (Colorless); Nucleated Cell Pleural Fluid 6034 /uL (0-1000); Pleural fluid source Pleural fluid; RBC Pleural Fluid 3000 /uL (0-10000)
[2023-12-14 16:14] LABS: Lymphocytes Pleural Fluid 7 %; Macrophages Pleural Fluid 2 %; Monocytes Pleural Fluid 7 %; Neutrophils Pleural Fluid 84 % (0-25)
--- NOTE | 2023-12-14 16:38 | ADMGEN ---
This patient, Niko Abraham, was admitted to IMU Room 213-01. Patient/family oriented to hospital policies and general routines including ID bracelet, bed and alarms, visiting hours, pain management, procedures, bathroom and other care routines, personal items, smoking policy, room service/diet, and visiting hours. Information on how to activate the Rapid Response Team has been discussed. Patient/Family are encouraged to report perceived risks to care and to ask questions if they do not understand what they are told or what they should do.
[2023-12-14 17:01] LABS: Uric Acid 4.6 mg/dL (3.5-8.5)
[2023-12-14 17:03] LABS: Cholesterol 146 mg/dL (0-200); HDL Direct 31 mg/dL; Triglycerides 113 mg/dL (<150)
[2023-12-14 17:13] LABS: LDL Cholesterol Direct 87 mg/dL
[2023-12-14] MEDS: SODIUM CHLORIDE 0.9% IV 1,000 ML 125 ML IV CONT (17:50)
[2023-12-14 17:57] LABS: Procalcitonin 0.3 ng/mL
[2023-12-14] MEDS: AMPICILLIN SULB 3 GM/NS 100 ML 3 GM/100 ML VIAL IVPB ×2 (18:39→23:06)
[2023-12-14 18:43] LABS: Hepatitis B Surface Antigen Negative (Negative)
[2023-12-14 18:49] LABS: HAV RESULT Negative (Negative); Hepatitis B Core IgM Result Negative (Negative)
[2023-12-14 19:00] LABS: Hepatitis C Virus Antibody Negative (Negative)
[2023-12-15] VITALS (19 sets, daily range): BP systolic 102–128; BP diastolic 57–77; PULSE 80–108; RESP 14–22; TEMP 36.4–37.1; O2SAT 91–94
[2023-12-15] MEDS: SODIUM CHLORIDE 0.9% IV 1,000 ML 125 ML IV CONT ×2 (03:25→19:33)
[2023-12-15] MEDS: VANCOMYCIN 1,500 MG/NS 500 ML 1,500 MG/500 ML BAG 250 MG IVPB ×2 (03:28→15:49)
[2023-12-15 04:48] LABS: Estimated CRCL calculation 117 ml/min; Estimated Glomerular Filt Rate > 60
[2023-12-15] MEDS: SODIUM CHLOR 3% 15 ML NEB (RESPIRATORY THERAPY) 6 ML INHALATION (05:28)
[2023-12-15] MEDS: AMPICILLIN SULB 3 GM/NS 100 ML 3 GM/100 ML VIAL IVPB (06:17)
[2023-12-15 06:43] LABS: Appearance Urine Cloudy (Clear); Bacteria Urine None Seen /hpf; Bilirubin Urine 1+ (Negative); Blood Urine Negative (Negative); Color Urine Dark Yellow (Yellow); Glucose Urine UA Negative (Negative); Ketones Urine Trace mg/dL (Negative); Leukocyte Esterase Ur Negative LEU/UL (Negative); Need Manual Microscopic Reviewed; Nitrate Urine Negative (Negative); Non Pathogenic Casts 0-2; Protein Urine Trace mg/dL (Negative); Specific Grav Ur 1.025 (1.001-1.035); Squamous Epithelial Cell Urine None Seen /hpf (Few); WBC Urine 0-5 /hpf (0-3); pH Urine 5.5 (5.0-9.0)
[2023-12-15 06:45] LABS: Add Urine Microscopic? YES
[2023-12-15 07:01] LABS: Amphetamine Screen Urine Negative (Negative); Barbiturate Screen Urine Negative (Negative); Benzodiazepines Screen Urine Negative (Negative); Cannabinoid Screen Urine Negative (Negative); Cocaine Screen Urine Negative (Negative); Methadone Screen Urine Negative (Negative); Opiate Screen Urine Positive (Negative); Phencyclidine Screen Urine Negative (Negative)
[2023-12-15] MEDS: HYDROmorphone HCL INJ (*CRX) 1 MG/ML SYR 0.5 MG IV PUSH ×2 (07:13→21:53)
[2023-12-15 09:19] LABS: Basophils Absolute Auto 0.1 K/mm3 (0.0-0.1); Basophils Percent Auto 0.7 % (0.2-1.2); Eosinophils Absolute Auto 0.1 K/mm3 (0-0.3); Eosinophils Percent Auto 0.9 % (0-4.4); Hematocrit 40.4 % (42.0-52.0); Hemoglobin 13.5 g/dL (14.0-18.0); Immature Granulocyte Absolute 0.07 K/mm3 (0.00-0.031); Immature Granulocyte Percent A 0.5 % (0-0.5); Lymphocytes Absolute Auto 1.44 K/mm3 (0.9-3.2); Lymphocytes Percent Auto 10.2 % (18.3-44.2); Mean Corpuscular HGB Conc 33.4 g/dl (32-36); Mean Corpuscular Hemoglobin 30.5 pg (26-34); Mean Corpuscular Volume 91.2 fl (80-100); Mean Platelet Volume 10.4 fl (7.4-10.4); Monocytes Absolute Auto 1.8 K/mm3 (0.1-0.6); Monocytes Percent Auto 12.7 % (2.6-8.5); Neutrophils Absolute Auto 10.5 K/mm3 (1.3-6.7); Platelet Count Result 421 k/mm3 (150-375); Red Blood Count 4.43 M/mm3 (4.6-6.20); Red Cell Distribution Width 12.2 % (11.5-14.5); White Blood Count 14.1 K/mm3 (4.5-10.0)
--- NOTE | 2023-12-15 09:27 | PM.CNPUL ---
Assessment and Plan Assessment and plan (1) Pleural effusion: Code(s): J90 - Pleural effusion, not elsewhere classified Status: Acute Assessment and Plan: Patient presents with increased cough, fevers, leukocytosis, left lower lobe infiltrate with complex parapneumonic effusion with a pH of 7.22 and 84% neutrophils. Blood, pleural and sputum cultures are pending. Patient is on room air and a blood gas on room air was 7.47/28/61. The patient has poor dentition. Plan: Recommend patient be transfer to higher level of care facility for thoracic surgery consultation regarding chest tube and/or VATS procedure for his complex parapneumonic effusion. I will continue Zosyn, vancomycin and levofloxacin, all started on 12/14/2023. there is no evidence of hypercarbic respiratory failure. Discussed with Dr. Berger who will initiate the transfer. Will follow with you. (2) Pulmonary nodule: Code(s): R91.1 - Solitary pulmonary nodule Status: Acute Assessment and Plan: Patient with right lower lobe nodule most consistent with benign hematoma at this time. Patient will require follow-up CT scan in the future. History of Present Illness History of Present Illness Consult date: 12/15/23 Chief complaint: Loculated Pleural Effusion, Sepsis Narrative: 12/15/2023: This is a new pulmonary consult for loculated left pleural effusion. 33-year-old man with a history of pancreatitis as a teenager, cholecystectomy on 11/29/2022, dental abscess 6-8 months ago treated with 10 days of antibiotics with complete resolution. on no home medicines. Patient is a smoker at 1 pack per day since age 14. Patient was in his usual state of health on 12/07/2023. He has a chronic cough productive of minimal phlegm. On 12/08/2023 the patient woke up with left-sided back and chest pain and thought he slept on his back improperly. He denied fever, chills, rigors. Patient was the same on 12/08 and they drove to [place] to a wedding. On 12/09 he developed left shoulder pain but otherwise was the same. On 12/10 his pain was worse and on 12/11 his pain was worsened he also had substernal chest pain with increased cough, clammy feeling, hot and cold feeling. symptoms persisted on 12/12. Patient presented to the emergency department on 12/13 With blood pressure 129/91, room air saturations 91%, heart rate 115, white blood cell count 14.8, creatinine 0.9, BNP 82, troponin negative x2, HIV negative, COVID, influenza and RSV RT PCR study negative. CT angiogram was negative for PE and demonstrated a moderate left loculated pleural effusion with left lower lobe Infiltrate with atelectatic changes. patient also had a 1.4 cm right lower lobe nodule. CT scan of the abdomen demonstrated no evidence of malignant disease and and alternative impression of the right lower lobe nodule was a benign hemartoma. patient was started on vancomycin, Zosyn and Levaquin. Patient had a left thoracentesis with 500 mL of etelvina fluid removed. PH was 7.22, g stain was many white blood cells no organisms seen. White blood cells 6032 with neutrophils 84%, lymphocytes 7, monocytes 7, macrophages 2% 12/14/23: patient tells me that he is a little bit better. His pain is less intense. He denies shortness of breath. He is on room air with saturations 92%. Patient had a fever last night to 37.8. Chest x-ray today shows continue moderate to large left pleural effusion and minimal right pleural effusion. EXAMINATION: CT abdomen pelvis wo con DATE: 12/14/2023 12:35 INDICATION: Concern for metastatic disease based on prior chest CT TECHNIQUE: Computed tomography (CT) of the abdomen and pelvis was performed without intravenous contrast. Automated exposure control and iterative reconstruction technique were employed. The dose-length product was 1092.03 mGy-cm. COMPARISON: 11/29/2022 FINDINGS: Small likely complex loculated left ple
[2023-12-15 10:39] LABS: Anion Gap 9 mmol/L (4-12); Blood Urea Nitrogen 10 mg/dL (9-20); Calcium 8.6 mg/dL (8.4-10.2); Carbon Dioxide 20 mmol/L (22-30); Chloride 103 mmol/L (98-107); Estimated CRCL calculation 117 ml/min; Estimated Glomerular Filt Rate > 60; Glucose 114 mg/dL (65-110); Magnesium 1.9 mg/dL (1.6-2.3); Sodium 132 mmol/L (137-145)
[2023-12-15] MEDS: levoFLOXacin 750 MG/D5W 150 ML 750 MG/150 ML BAG 100 MG IVPB (10:45)
--- NOTE | 2023-12-15 12:01 | PM.TDS ---
Transfer Discharge Sum: Prov Provider Date of admission: 12/15/23 10:16 Primary care physician: Anita Shelton MD Admitting clinician: Gustavo Kulkarni MD Attending physician on admission: Clara Berger Consults: 12/14/23 12:34 Consult to Physician Routine Comment: Consulting Provider: Sandro Jefferson Reason for consultation: Pleural effusions, pulmonary nodule Has provider been notified: Yes Attending physician on discharge: Clara Berger Discharging clinician: Clara Berger Anticipated date of transfer: 12/15/23 Receiving physician/facility: [facility] DS: Admitting Diagnosis Discharge Date 12/15/23 Admitting Diagnosis Chest Pain SOB with exertion DS: Discharge Diagnosis Discharge Diagnosis (1) Pleural effusion: Code(s): J90 - Pleural effusion, not elsewhere classified Status: Acute (2) Pulmonary nodule: Code(s): R91.1 - Solitary pulmonary nodule Status: Acute (3) Smoker: Code(s): F17.200 - Nicotine dependence, unspecified, uncomplicated Status: Acute (4) Loculated pleural effusion: Code(s): J90 - Pleural effusion, not elsewhere classified Status: Acute Transfer Discharge Sum: Med Medications Active and Home Medications: Home Medications No Home Medications 12/14/23 [History Confirmed 12/14/23] Active Medications Acetaminophen (Acetaminophen 325 Mg Tablet) 650 mg PO Q4H PRN PRN Reason: Mild Pain (1-3) or Fever Hydromorphone HCl (Hydromorphone Hcl Inj (*Crx) 1 Mg/Ml Syr) 0.5 mg IV PUSH Q4H PRN PRN Reason: Pain Rated 7-10 Last Admin: 12/15/23 07:13 Dose: 0.5 mg Sodium Chloride (Normal Saline Iv) 1,000 mls @ 125 mls/hr IV CONT .Q8H ANN Last Admin: 12/15/23 06:53 Dose: Not Given Vancomycin HCl (Vancomycin 1,500 Mg/Ns 500 Ml) 1,500 mg in 500 mls @ 250 mls/hr IVPB Q12H ANN Last Infusion: 12/15/23 05:30 Dose: Infused Levofloxacin/Dextrose (Levaquin 750 Mg/D5w 150 Ml) 750 mg in 150 mls @ 100 mls/hr IVPB DAILY ANN Last Admin: 12/15/23 10:45 Dose: 100 mls/hr Piperacillin/Tazobactam/Dextrose (Zosyn 3.375 Gm/Ns 50 Ml) 3.375 gm in 50 mls @ 100 mls/hr IVPB Q6HR [facility] Ondansetron HCl (Ondansetron Inj 4 Mg/2 Ml Vial) 4 mg IV PUSH Q4H PRN PRN Reason: Nausea Perflutren Lipid Microsphere (Perflutren Lipid Microspheres 1.5 Ml Vial Diluted To 10 Ml Total Volume) 0 ml IV PUSH ONCE PRN; Protocol PRN Reason: adequate visualization Stop: 12/17/23 15:42 Sodium Chloride (Sodium Chlor 3% 15 Ml Neb (Respiratory Therapy)) 6 ml INHALATION DAILY@0500 ANN Stop: 12/17/23 05:01 Last Admin: 12/15/23 05:28 Dose: 6 ml Transfer Discharge Sum: Hosp Hospital Course Hospital course: 33-year-old Male with past medical history of smoking presented here from home for further evaluation of shortness of breath with exertion and chest discomfort.Initial VS at presentation: PA 97.9? F, HR 115, RR 28, 129/91, and 91% on RA. ED workup showed: WBC 14.8, platelet count 431, anion gap 13, creatinine 0.9 and GFR >60, lactic 1.3, total bilirubin 1.6, and initial troponin negative.? Lipase 39 and LFTs within normal limits. CT angiogram was negative for PE and demonstrated a moderate left loculated pleural effusion with left lower lobe ? Infiltrate? with atelectatic changes.Patient had a left thoracentesis with 500 mL of etelvina fluid removed.? Patient has been started on broad-spectrum antibiotic. Pulmonary was consulted. Concern for loculated pleural effusion which would require higher level of care. Transfer was initiated, patient was accepted to [facility], pending bed availability. Time Spent with Patient Time attestation: Total time spent providing and/or coordinating transfer services: Total time spent: Greater than 30 minutes Exam Const: General: comfortable and no acute distress Other: , male, ill-appearing HENMT: Face/Nose/Sinus: Normal nares present Mouth: Yes
[2023-12-15] MEDS: PIPERACILLN/TAZ 3.375GM/NS50ML 3.375 GM/50 ML BAG IVPB ×2 (12:21→19:30)
--- NOTE | 2023-12-15 18:55 | PC.NURSE ---
Spoke with [facility]. Latest vital signs provided. Accepted to bed 807-2 at [facility]
[2023-12-20 20:28] LABS: Glucose Pleural Fluid 67 mg/dL
[2023-12-20 21:09] LABS: Amylase, Pleural Fluid 19 U/L; LDH Pleural Fluid 1021 U/L; Total Protein Pleural Fluid 5.3 g/dL
== END 2023-12-15 22:00 | disposition short-term general hospital (02) | DRG 186 ==
LOC: ANHED 09:18 → ANHIMU 13:09
PROVIDERS: Emergency Medicine; Internal Medicine Pulmonary Disease; Student in an Organized Health Care Education/Training Program; Admitting Provider Internal Medicine; Emergency Provider Physician Assistant; PCP Family Medicine; Visit Provider Internal Medicine
DX: J90 Pleural effusion, not elsewhere classified (principal); J18.9 Pneumonia, unspecified organism; R91.1 Solitary pulmonary nodule; F17.210 Nicotine dependence, cigarettes, uncomplicated; Z20.822 Contact with and (suspected) exposure to COVID-19
CPT/HCPCS: 32555; 36415; 36600; 71045; 71046; 71275; 74176; 80048; 80053; 80061; 80074; 80307; 81001; 82042; 82150; 82565; 82805; 82945; 83605; 83615; 83690; 83735; 83880; 83986; 84145; 84157; 84311; 84443; 84478; 84484; 84550; 85025; 85610; 85730; 86038; 86703; 87015; 87040; 87070; 87075; 87102; 87116; 87205; 87206; 87637; 87641; 88108; 88305; 89051; 93005; 93306; 94640; 96365; 96366; 96367; 96375; 96376; 99285; G0378; G0432; J0295; J1170; J1956; J2543; J3370; J7030; J7120; Q9967

== ENCOUNTER 2024-04-13 14:50 | Outpatient (CLI) | payer OTHER, MEDICAID, SELFPAY ==
--- NOTE | ~2024-04-13 | CT_ITS ---
EXAMINATION:CT diagnostic chest wo con DATE: 04/13/2024 15:05 INDICATION: Pneumonia. TECHNIQUE: Computed tomography (CT) of the chest was performed without intravenous contrast. Automate d exposure control and iterative reconstruction technique were employed. The dose-length product (DLP ) was 606.21 mGy-cm. COMPARISON: Chest CT 12/14/2023 FINDINGS: The lungs demonstrate mild atelectasis. No pleural effusion. There is a 10 mm nodule in lef t thyroid lobe, likely not clinically significant. The heart size is normal. No pericardial effusion. There is diffuse hepatic steatosis. There are changes of cholecystectomy. There is mild thoracic spo ndylosis. IMPRESSION: 1. Mild atelectasis in the lungs. 2. Diffuse hepatic steatosis. Reviewed, dictated and finalized at location A.
== END 2024-04-13 14:51 | disposition home or self-care (01) ==
PROVIDERS: PCP Internal Medicine; Visit Provider Internal Medicine
DX: J18.9 Pneumonia, unspecified organism (principal); K76.0 Fatty (change of) liver, not elsewhere classified
CPT/HCPCS: 71250